=== PATIENT | male | born 1990 | race Caucasian/White ===

== ENCOUNTER 2022-12-25 11:51 | Emergency (ER) | payer MEDICAID ==
[~2022-12-25] VITALS: Ht 177.8 cm; Wt 80.0 kg
[2022-12-25 11:54] VITALS: O2SAT 98
[2022-12-25] MEDS ORDERED: NALO4SPR BOTHNSTRLS (14:31)
[2022-12-25 14:58] VITALS: BP 114/79; PULSE 62; RESP 18; TEMP 98.9
[2022-12-25] MEDS ORDERED: ONDA4TAB11 PO (16:35)
== END 2022-12-25 15:41 | disposition home or self-care (01) ==
LOC: ER 11:51
DX: T40.0X1A Poisoning by opium, accidental (unintentional), initial encounter (principal); F14.10 Cocaine abuse, uncomplicated; F12.10 Cannabis abuse, uncomplicated; F15.10 Other stimulant abuse, uncomplicated; X58.XXXA Exposure to other specified factors, initial encounter
CPT/HCPCS: 99283

== ENCOUNTER 2022-12-25 16:03 | Emergency (ER) | payer MEDICAID ==
[~2022-12-25] VITALS: Ht 180.3 cm; Wt 73.0 kg
[~2022-12-25 16:03] MED LIST: NALO4SPR BOTHNSTRLS
[2022-12-25 16:23] VITALS: BP 126/84; PULSE 61; RESP 16; TEMP 98.9; O2SAT 98
[2022-12-25] MEDS ORDERED: ONDA4TAB11 PO (16:35)
[2022-12-25] MEDS ORDERED: ONDANSETRON 4MG ODT PO ONE (16:45)
== END 2022-12-25 17:38 | disposition home or self-care (01) ==
LOC: ER 17:06
DX: T50.901A Poisoning by unspecified drugs, medicaments and biological substances, accidental (unintentional), initial encounter (principal); R11.2 Nausea with vomiting, unspecified; F12.90 Cannabis use, unspecified, uncomplicated; F15.90 Other stimulant use, unspecified, uncomplicated; Y92.89 Other specified places as the place of occurrence of the external cause
CPT/HCPCS: 99283; Q0162